=== PATIENT | female | born 1965 | race Caucasian/White ===

== ENCOUNTER 2017-01-11 19:39 | Emergency (ER) | payer MEDICAID ==
[~2017-01-11] VITALS: Ht 160 cm; Wt 55.3 kg
[2017-01-11 20:21] VITALS: BP 145/75
--- NOTE | 2017-01-11 21:47 | NUR ---
PT TAKEN TO OF
--- NOTE | 2017-01-11 22:07 | NUR ---
Dr. Mendez evaluating patient
--- NOTE | 2017-01-11 22:32 | NUR ---
SAMIRA SPLINT TOE 1 AND 2 LEFT, [facility] [place] ADAM
[2017-01-11 22:35] VITALS: BP 151/84
--- NOTE | 2017-01-11 22:35 | NUR ---
Patient discharged with v/s stable. Written and verbal after care instructions given and explained. Patient alert, oriented and verbalized understanding of instructions. Ambulatory with steady gait. All questions addressed prior to discharge. ID band removed. Patient advised to follow up with PMD. Rx of [place] and Ibuprofen given. Patient educated on indication of medication including possible reaction and side effects. Opportunity to ask questions provided and answered.
== END 2017-01-11 22:35 | disposition home or self-care (01) ==
LOC: MED 19:39
DX: S92.421A Displaced fracture of distal phalanx of right great toe, initial encounter for closed fracture (principal); W01.0XXA Fall on same level from slipping, tripping and stumbling without subsequent striking against object, initial encounter; Y93.89 Activity, other specified; Y92.89 Other specified places as the place of occurrence of the external cause; Y99.8 Other external cause status
CPT/HCPCS: 73630; 81025; 99284